=== PATIENT | female | born 1990 | race Caucasian/White ===

== ENCOUNTER 2018-06-01 00:36 | Emergency (ER) | payer OTHER ==
[~2018-06-01] VITALS: Ht 167.6 cm; Wt 76.6 kg
[~2018-06-01 00:36] MED LIST: ADAL40PE SC; BUDE3CAP15 PO; BUDE3CAP2 PO; DICY10CA53 PO; FOLI0.8T2 PO; MERC50TA17 PO; MULT-658 PO; ONDA4TAB10 PO; OXYC5TAB3 PO; TOFA5TAB PO; TRAM50TA2 PO
--- NOTE | 2018-06-01 00:44 | NUR ---
Pt here noting that she has pain radiating down her legs and into calves for 3 weeks progressively getting worse, staets that she currently in Crohns flare. It worsens throught the day making it hard to walk.
--- NOTE | 2018-06-01 00:48 | NUR ---
PT NOTES THAT SHE SAW PMD SATURDAY AND DIAGNOSED WITH UTI HOWEVER ALL PHARMACYS WERE OUT OF CIPRO, IS CURRENTLY OFF ALL MEDS FOR CROHNS AT THIS TIME
--- NOTE | 2018-06-01 00:59 | NUR ---
URINE COLLECTED AND SENT, PA AT BEDSIDE.
[2018-06-01 01:06] LABS: MICROSCOPIC AUTO
[2018-06-01 01:08] LABS: CULTURE INDICATED? YES
--- NOTE | 2018-06-01 01:13 | NUR ---
Labs drawn, side rails up times 1, call jara in reach and aware of use. Warm blanket given. Pleasant young lady
[2018-06-01 01:22] LABS: BASOPHILS # (AUTO) 0.04 x10^3/uL (0-0.1); BASOPHILS % (AUTO) 1 % (0-1); EOSINOPHILS # (AUTO) 0.18 x10^3/uL (0-0.4); EOSINOPHILS % (AUTO) 3 % (1-7); LYMPHOCYTES # (AUTO) 1.07 x10^3/uL (1-3.4); LYMPHOCYTES % (AUTO) 15 % (22-44); MD NO; MEAN CORPUSCULAR HEMOGLOBIN 23.6 pg (27.0-34.8); MEAN CORPUSCULAR VOLUME 71.5 fL (80-100); MEAN PLATELET VOLUME 7.6 fL (7.4-10.4); MONOCYTES # (AUTO) 0.68 x10^3/uL (0.2-0.8); MONOCYTES % (AUTO) 10 % (2-9); NEUTROPHILS # (AUTO) 5.17 x10^3/uL (1.8-6.8); NEUTROPHILS % (AUTO) 72 % (42-75); PLATELET COUNT 380 x10^3/uL (130-400); RED BLOOD COUNT 4.51 x10^6/uL (3.82-5.3); RED CELL DISTRIBUTION WIDTH 16.2 % (9.6-15.2)
[2018-06-01 01:24] LABS: HCG UR SG 1.026 (1.003-1.030)
[2018-06-01 01:30] LABS: ALANINE AMINOTRANSFERASE 13 U/L (12-78); ALBUMIN 2.7 g/dL (3.4-5.0); ANION GAP 6 mmol/L (5-15); CALCIUM 8.1 mg/dL (8.5-10.1); CHLORIDE 108 mmol/L (98-107); CREATININE 0.71 mg/dL (0.55-1.02)
[2018-06-01 01:32] LABS: ALKALINE PHOSPHATASE 75 U/L (45-117); BILIRUBIN,TOTAL 0.2 mg/dL (0.2-1.0); TOTAL PROTEIN 6.9 g/dL (6.4-8.2)
[2018-06-01 01:53] VITALS: BP 121/75
== END 2018-06-01 02:40 | disposition home or self-care (01) ==
LOC: ED 01:07
DX: S86.812A Strain of other muscle(s) and tendon(s) at lower leg level, left leg, initial encounter (principal); S86.811A Strain of other muscle(s) and tendon(s) at lower leg level, right leg, initial encounter; M76.32 Iliotibial band syndrome, left leg; N30.00 Acute cystitis without hematuria; R10.84 Generalized abdominal pain; X58.XXXA Exposure to other specified factors, initial encounter; Y93.89 Activity, other specified; Y92.89 Other specified places as the place of occurrence of the external cause; Y99.8 Other external cause status
CPT/HCPCS: 36415; 80053; 81001; 81025; 83690; 85025; 87077; 87086; 87186; 99283